=== PATIENT | female | born 1985 | race African-American/Black ===

== ENCOUNTER 2020-11-09 09:13 | Inpatient (IN) | payer OTHER, MEDICAID ==
[~2020-11-09] VITALS: Ht 172.7 cm; Wt 144.3 kg
[2020-11-09 10:37] LABS: BASOPHILS % 0.6 % (0.0-2.0); EOSINOPHILS % 1.1 % (0.0-5.0); HEMATOCRIT. 42.6 % (36.0-48.0); HEMOGLOBIN. 14.4 g/dL (12.0-16.0); LYMPHOCYTES % 44.5 % (20.0-50.0); MEAN CORPUSCULAR HEMOGLOBIN 28.4 pg (28.0-32.0); MEAN CORPUSCULAR VOLUME 83.8 fL (81.0-99.0); MEAN PLATELET VOLUME 8.6 fl (7.4-10.4); MONOCYTES % 7.2 % (2.0-8.0); NEUTROPHILS % 46.6 % (40.0-76.0); PLATELET 296 x1000/uL (130-400); RED BLOOD CELL COUNT 5.09 mill/uL (4.2-5.4)
[2020-11-09 10:40] LABS: CHLORIDE 102 mEq/L (98-107)
[2020-11-09 10:44] LABS: HCG SCREEN NEGATIVE
[2020-11-09] MEDS ORDERED: MAGNESIUM 2 G PREMIX 50 ML IV ONE (12:45)
[2020-11-09] MEDS ORDERED: LACTATED RINGERS 1,000 ML IV SCH (12:45)
[2020-11-09] MEDS ORDERED: DIGOXIN 500MCG/2ML AMP IV ONE (12:45)
[2020-11-09] MEDS ORDERED: DILTIAZEM HCL 5MG/ML 5ML VIAL IV ONE ×2 (12:45→14:30)
[2020-11-09 13:01] LABS: CHLORIDE 106 mEq/L (98-107)
[2020-11-09 13:05] LABS: HEMATOCRIT. 35.2 % (36.0-48.0); HEMOGLOBIN. 11.5 g/dL (12.0-16.0); MEAN CORPUSCULAR VOLUME 88.5 fL (81.0-99.0); MEAN PLATELET VOLUME 8.8 fl (7.4-10.4); PLATELET 223 x1000/uL (130-400); RED BLOOD CELL COUNT 3.97 mill/uL (4.2-5.4); RED CELL DISTRIBUTION WIDTH 12.8 % (11.6-14.6)
[2020-11-09 13:30] LABS: HCG SCREEN NEGATIVE
[2020-11-09] MEDS ORDERED: ACETAMINOPHEN 325MG TABLET PO ONE (13:30)
[2020-11-09 13:41] LABS: PLATELET ESTIMATE NORMAL
[2020-11-09] MEDS ORDERED: LORAZEPAM 0.5MG TABLET PO PRN (16:15)
[2020-11-09] MEDS ORDERED: NITROGLYCERIN 0.4MG TABLET SL SL PRN (16:15)
[2020-11-09] MEDS ORDERED: CLONIDINE 0.1MG TABLET PO PRN (16:15)
[2020-11-09] MEDS ORDERED: IPRATROPIUM/ALBUTEROL 0.5-3(2.5)MG/3ML NEB NEB PRN (16:15)
[2020-11-09] MEDS ORDERED: ONDANSETRON HCL 4MG/2ML INJ IV PRN (16:15)
[2020-11-09] MEDS ORDERED: ACETAMINOPHEN 325MG TABLET PO PRN (16:15)
[2020-11-09] MEDS ORDERED: DOCUSATE SODIUM 100MG CAPSULE PO PRN (16:15)
[2020-11-09] MEDS ORDERED: KETOROLAC 15MG/ML VIAL IV PRN (16:15)
[2020-11-09] MEDS ORDERED: MAGNESIUM/ALUMINUM HYDROXIDE/SIMETHICONE 30ML UDC PO PRN (16:15)
[2020-11-09] MEDS ORDERED: GUAIFENESIN 200MG/10ML SUGAR FREE UDC PO PRN (16:15)
[2020-11-09 16:51] LABS: *AMPHETAMINES SCREEN URINE NEGATIVE (NEGATIVE); *BARBITURATES SCREEN URINE NEGATIVE (NEGATIVE); *BENZODIAZEPINES SCREEN URINE NEGATIVE (NEGATIVE)
[2020-11-09 16:52] LABS: *COCAINE SCREEN URINE NEGATIVE (NEGATIVE); CANNABINOID URINE SCREEN NEGATIVE (NEGATIVE); METHADONE URINE SCREEN NEGATIVE (NEGATIVE); OPIATES URINE SCREEN NEGATIVE (NEGATIVE); PHENCYCLIDINE URINE SCREEN NEGATIVE (NEGATIVE)
[2020-11-09] MEDS: ENOXAPARIN 40MG/0.4ML SYR SUBCUT SCH (17:11)
[2020-11-09 17:35] LABS: FOLIC ACID (FOLATE) SERUM 11.5 ng/mL (>5.38)
[2020-11-09] MEDS ORDERED: DILTIAZEM HCL 60MG TABLET PO SCH (18:00)
[2020-11-09 18:28] LABS: T4 FREE 1.23 ng/dL (0.76-1.46)
[2020-11-09] MEDS ORDERED: FAMOTIDINE 20MG/2ML VIAL IV SCH (21:00)
[2020-11-09] MEDS ORDERED: ZOLPIDEM TARTRATE 5MG TABLET PO PRN (21:00)
[2020-11-09 21:26] VITALS: BP 126/72
[2020-11-09] MEDS: ASCORBIC ACID 500 MG TABLET PO SCH (21:55)
[2020-11-09] MEDS: FAMOTIDINE 20MG TABLET PO SCH (21:55)
[2020-11-09 22:30] VITALS: BP 126/72
[2020-11-09 23:50] LABS: CREATINE KINASE 34 IU/L (26-192)
[2020-11-09 23:51] LABS: CREATINE KINASE MB FRACTION < 1.0 ng/mL (0.5-3.6)
[2020-11-10] VITALS: BP 110/53
[2020-11-10] MEDS: DILTIAZEM HCL 30MG TABLET PO SCH ×3 (00:34→12:54)
[2020-11-10 04:00] VITALS: BP 131/59
[2020-11-10] MEDS: ENOXAPARIN 40MG/0.4ML SYR SUBCUT SCH (05:46)
[2020-11-10 07:12] LABS: BASOPHILS % 0.3 % (0.0-2.0); EOSINOPHILS % 1.4 % (0.0-5.0); HEMATOCRIT. 38.1 % (36.0-48.0); LYMPHOCYTES % 52.7 % (20.0-50.0); MEAN CORPUSCULAR HEMOGLOBIN 28.6 pg (28.0-32.0); MEAN CORPUSCULAR VOLUME 83.9 fL (81.0-99.0); MEAN PLATELET VOLUME 8.5 fl (7.4-10.4); MONOCYTES % 7.2 % (2.0-8.0); NEUTROPHILS % 38.4 % (40.0-76.0); PLATELET 269 x1000/uL (130-400); RED BLOOD CELL COUNT 4.53 mill/uL (4.2-5.4)
[2020-11-10 07:30] LABS: CHLORIDE 104 mEq/L (98-107)
[2020-11-10 07:53] LABS: CREATINE KINASE 29 IU/L (26-192)
[2020-11-10 07:56] LABS: PHOSPHORUS 4.7 mg/dL (2.5-4.9)
[2020-11-10 08:00] VITALS: BP 109/65
[2020-11-10 08:01] LABS: CREATINE KINASE MB FRACTION < 1.0 ng/mL (0.5-3.6)
[2020-11-10] MEDS: FAMOTIDINE 20MG TABLET PO SCH ×2 (08:43→20:59)
[2020-11-10] MEDS: ASCORBIC ACID 500 MG TABLET PO SCH ×2 (08:43→20:59)
[2020-11-10] MEDS: ZINC SULFATE 220 MG ( 50 ) CAPSULE PO SCH (08:43)
[2020-11-10] MEDS: ACETAMINOPHEN 325MG TABLET PO PRN (08:44)
[2020-11-10] MEDS: CHOLECALCIFEROL (D3) 1000 UNIT TABLET PO SCH (08:44)
[2020-11-10] MEDS ORDERED: ASPIRIN 325MG EC TABLET PO SCH (09:00)
[2020-11-10 12:00] VITALS: BP 139/76
[2020-11-10 16:00] VITALS: BP 117/77
[2020-11-10] MEDS: APIXABAN 5 MG TABLET PO SCH (17:28)
[2020-11-10] MEDS: DILTIAZEM HCL 120MG CAPSULE CD 24HR PO SCH (17:28)
[2020-11-10 20:00] VITALS: BP 102/77
[2020-11-11] VITALS: BP 123/56
[2020-11-11 04:00] VITALS: BP 116/59
[2020-11-11 08:00] VITALS: BP 109/58
[2020-11-11] MEDS: DILTIAZEM HCL 120MG CAPSULE CD 24HR PO SCH (09:00)
[2020-11-11] MEDS: CHOLECALCIFEROL (D3) 1000 UNIT TABLET PO SCH (09:27)
[2020-11-11] MEDS: ZINC SULFATE 220 MG ( 50 ) CAPSULE PO SCH (09:27)
[2020-11-11] MEDS: FAMOTIDINE 20MG TABLET PO SCH ×2 (09:28→20:51)
[2020-11-11] MEDS: APIXABAN 5 MG TABLET PO SCH ×2 (09:28→17:32)
[2020-11-11] MEDS: ASCORBIC ACID 500 MG TABLET PO SCH ×2 (09:28→20:51)
[2020-11-11 12:00] VITALS: BP 144/75
[2020-11-11 16:00] VITALS: BP 109/41
[2020-11-11] MEDS: ACETAMINOPHEN 325MG TABLET PO PRN (18:46)
[2020-11-11 20:00] VITALS: BP 107/68
[2020-11-11] MEDS ORDERED: KETOROLAC 15MG/ML VIAL IV PRN (20:00)
[2020-11-12] VITALS: BP 112/58
[2020-11-12 04:00] VITALS: BP 113/61
[2020-11-12 08:00] VITALS: BP 114/60
[2020-11-12] MEDS: APIXABAN 5 MG TABLET PO SCH (08:42)
[2020-11-12] MEDS: CHOLECALCIFEROL (D3) 1000 UNIT TABLET PO SCH (08:42)
[2020-11-12] MEDS: ASCORBIC ACID 500 MG TABLET PO SCH (08:42)
[2020-11-12] MEDS: FAMOTIDINE 20MG TABLET PO SCH (08:42)
[2020-11-12] MEDS: ZINC SULFATE 220 MG ( 50 ) CAPSULE PO SCH (08:43)
[2020-11-12] MEDS: DILTIAZEM HCL 120MG CAPSULE CD 24HR PO SCH (08:44)
[2020-11-12] MEDS ORDERED: FLECAINIDE 50MG TABLET PO SCH (09:00)
[2020-11-12 11:13] VITALS: BP 125/83
[2020-11-12 12:00] VITALS: BP 125/83
== END 2020-11-12 14:45 | disposition home or self-care (01) | DRG 309 ==
LOC: ER 09:38 → EDBEDREQ 15:43 → 5WST 15:43 → ENRESERV 20:59
PROVIDERS: ADMIT Internal Medicine; ATTEND Internal Medicine
DX: I48.0 Paroxysmal atrial fibrillation (principal); E87.1 Hypo-osmolality and hyponatremia; Z68.42 Body mass index [BMI] 45.0-49.9, adult; R55 Syncope and collapse; E66.01 Morbid (severe) obesity due to excess calories; J45.909 Unspecified asthma, uncomplicated; M54.2 Cervicalgia; K21.9 Gastro-esophageal reflux disease without esophagitis; W18.39XA Other fall on same level, initial encounter; M54.12 Radiculopathy, cervical region; Z79.82 Long term (current) use of aspirin; Z87.09 Personal history of other diseases of the respiratory system; Z79.01 Long term (current) use of anticoagulants; Z71.3 Dietary counseling and surveillance; Y93.89 Activity, other specified; Y92.89 Other specified places as the place of occurrence of the external cause; Y99.8 Other external cause status; R73.03 Prediabetes
CPT/HCPCS: 36415; 71045; 80048; 80053; 80061; 80305; 82550; 82553; 82607; 82746; 83036; 83540; 83550; 83735; 84100; 84439; 84443; 84484; 84703; 85025; 85379; 93005; 93306; 93970; 99285; J1160; J1650; J1885; J3475; J3490

== ENCOUNTER 2021-03-18 11:39 | Inpatient (IN) | payer OTHER, MEDICAID ==
[~2021-03-18] VITALS: Ht 175.3 cm; Wt 147.4 kg
[2021-03-18 17:38] LABS: BASOPHILS % 1.2 % (0.0-2.0); EOSINOPHILS % 0.9 % (0.0-5.0); HEMATOCRIT. 37.7 % (36.0-48.0); HEMOGLOBIN. 12.7 g/dL (12.0-16.0); LYMPHOCYTES % 43.6 % (20.0-50.0); MEAN CORPUSCULAR HEMOGLOBIN 28.1 pg (28.0-32.0); MEAN CORPUSCULAR VOLUME 83.5 fL (81.0-99.0); MEAN PLATELET VOLUME 9.1 fl (7.4-10.4); MONOCYTES % 5.7 % (2.0-8.0); NEUTROPHILS % 48.6 % (40.0-76.0); PLATELET 301 x1000/uL (130-400); RED BLOOD CELL COUNT 4.52 mill/uL (4.2-5.4); RED CELL DISTRIBUTION WIDTH 12.6 % (11.6-14.6)
[2021-03-18 17:42] LABS: CHLORIDE 104 mEq/L (98-107)
[2021-03-19 03:04] LABS: CLARITY URINE CLEAR (CLEAR); COLOR URINE YELLOW (YELLOW); KETONES URINE TRACE (NEGATIVE); LEUKOCYTE ESTERASE URINE NEGATIVE (NEGATIVE); NITRITE URINE NEGATIVE (NEGATIVE); OCCULT BLOOD URINE 1+ (NEGATIVE); PH URINE 5.5 (4.5-8.0); PROTEIN URINE NEGATIVE (NEGATIVE); SPECIFIC GRAVITY URINE 1.043 (1.005-1.030)
[2021-03-19 03:14] LABS: *AMPHETAMINES SCREEN URINE NEGATIVE (NEGATIVE); *BARBITURATES SCREEN URINE NEGATIVE (NEGATIVE); *BENZODIAZEPINES SCREEN URINE NEGATIVE (NEGATIVE); *COCAINE SCREEN URINE NEGATIVE (NEGATIVE); CANNABINOID URINE SCREEN NEGATIVE (NEGATIVE); METHADONE URINE SCREEN NEGATIVE (NEGATIVE); OPIATES URINE SCREEN NEGATIVE (NEGATIVE); PHENCYCLIDINE URINE SCREEN NEGATIVE (NEGATIVE)
[2021-03-19 05:00] VITALS: BP 125/70
[2021-03-19] MEDS ORDERED: CARD12 PO (06:34)
[2021-03-19] MEDS ORDERED: FAMO20TA8 PO (06:34)
[2021-03-19] MEDS ORDERED: FLEC50TA2 PO (06:34)
[2021-03-19 07:01] LABS: CHLORIDE 107 mEq/L (98-107)
[2021-03-19 07:03] LABS: BASOPHILS % 0.2 % (0.0-2.0); EOSINOPHILS % 1.6 % (0.0-5.0); HEMATOCRIT. 35.3 % (36.0-48.0); HEMOGLOBIN. 11.9 g/dL (12.0-16.0); LYMPHOCYTES % 50.6 % (20.0-50.0); MEAN CORPUSCULAR HEMOGLOBIN 28.1 pg (28.0-32.0); MEAN CORPUSCULAR VOLUME 83.2 fL (81.0-99.0); MEAN PLATELET VOLUME 8.2 fl (7.4-10.4); MONOCYTES % 7.2 % (2.0-8.0); NEUTROPHILS % 40.4 % (40.0-76.0); PLATELET 264 x1000/uL (130-400); RED BLOOD CELL COUNT 4.25 mill/uL (4.2-5.4); RED CELL DISTRIBUTION WIDTH 12.7 % (11.6-14.6)
[2021-03-19 07:10] LABS: CREATINE KINASE 42 IU/L (26-192)
[2021-03-19 07:12] LABS: CREATINE KINASE MB FRACTION < 1.0 ng/mL (0.5-3.6)
[2021-03-19 07:13] LABS: LDL CHOLESTEROL 93 mg/dL (5-100)
[2021-03-19 07:16] LABS: HDL CHOLESTEROL 50 mg/dL (40-59)
[2021-03-19 08:00] VITALS: BP 118/82
[2021-03-19] MEDS: ACETAMINOPHEN 500MG TABLET PO PRN ×2 (08:55→14:09)
[2021-03-19] MEDS ORDERED: FAMOTIDINE(NEO) 1MG/ML SUSP PO SCH (09:00)
[2021-03-19] MEDS: FAMOTIDINE 20MG TABLET PO SCH ×2 (09:14→21:05)
[2021-03-19] MEDS: DILTIAZEM HCL 120MG CAPSULE CD 24HR PO SCH (09:14)
[2021-03-19] MEDS: FLECAINIDE 50MG TABLET PO SCH ×2 (09:20→21:05)
[2021-03-19 12:00] VITALS: BP 107/73
[2021-03-19] MEDS: ASPIRIN 325MG EC TABLET PO SCH (14:09)
[2021-03-19] MEDS: ENOXAPARIN 40MG/0.4ML SYR SUBCUT SCH ×2 (14:11→21:07)
[2021-03-19 16:00] VITALS: BP 136/79
[2021-03-19 16:02] LABS: CREATINE KINASE 52 IU/L (26-192)
[2021-03-19 16:04] LABS: CREATINE KINASE MB FRACTION < 1.0 ng/mL (0.5-3.6)
[2021-03-19 20:00] VITALS: BP 131/77
[2021-03-19 23:14] LABS: CREATINE KINASE 37 IU/L (26-192)
[2021-03-19 23:16] LABS: CREATINE KINASE MB FRACTION < 1.0 ng/mL (0.5-3.6)
[2021-03-20] VITALS (7 sets, daily range): BP systolic 119–136; BP diastolic 63–86
[2021-03-20] MEDS: FAMOTIDINE 20MG TABLET PO SCH ×2 (08:39→20:52)
[2021-03-20] MEDS: ASPIRIN 325MG EC TABLET PO SCH (08:39)
[2021-03-20] MEDS: DILTIAZEM HCL 120MG CAPSULE CD 24HR PO SCH (08:39)
[2021-03-20] MEDS: ENOXAPARIN 40MG/0.4ML SYR SUBCUT SCH ×2 (08:40→20:52)
[2021-03-20] MEDS: FLECAINIDE 50MG TABLET PO SCH ×2 (08:40→20:52)
[2021-03-21] VITALS: BP 127/70
[2021-03-21 04:00] VITALS: BP 108/58
[2021-03-21 08:00] VITALS: BP 134/61
[2021-03-21] MEDS: FAMOTIDINE 20MG TABLET PO SCH ×2 (10:52→20:37)
[2021-03-21] MEDS: ENOXAPARIN 40MG/0.4ML SYR SUBCUT SCH ×2 (10:52→20:37)
[2021-03-21] MEDS: FLECAINIDE 50MG TABLET PO SCH ×2 (10:53→20:37)
[2021-03-21] MEDS: DILTIAZEM HCL 120MG CAPSULE CD 24HR PO SCH (10:53)
[2021-03-21] MEDS: ASPIRIN 325MG EC TABLET PO SCH (10:53)
[2021-03-21 12:00] VITALS: BP 127/57
[2021-03-21 16:00] VITALS: BP 119/59
[2021-03-21 20:00] VITALS: BP 145/77
[2021-03-22] VITALS: BP 113/68
[2021-03-22 04:00] VITALS: BP 103/51
[2021-03-22 08:00] VITALS: BP 121/70
[2021-03-22] MEDS: ENOXAPARIN 40MG/0.4ML SYR SUBCUT SCH ×2 (09:00→20:49)
[2021-03-22 12:00] VITALS: BP 119/88
[2021-03-22] MEDS: FAMOTIDINE 20MG TABLET PO SCH ×2 (12:41→20:48)
[2021-03-22] MEDS: FLECAINIDE 50MG TABLET PO SCH ×2 (12:41→20:48)
[2021-03-22] MEDS: ASPIRIN 325MG EC TABLET PO SCH (12:42)
[2021-03-22] MEDS: DILTIAZEM HCL 120MG CAPSULE CD 24HR PO SCH (12:42)
[2021-03-22] MEDS ORDERED: DEXTROSE 50% WATER 50ML SYRINGE IV PRN (14:30)
[2021-03-22] MEDS: BLOOD SUGAR DIAGNOSTIC STRIP TEST SCH ×2 (17:10→20:47)
[2021-03-22] MEDS: INSULIN LISPRO 100 UNITS/ML SUBCUT SCH ×2 (17:40→20:49)
[2021-03-22 19:37] VITALS: BP 136/76
[2021-03-23] VITALS: BP 137/85
[2021-03-23 04:00] VITALS: BP 113/67
[2021-03-23] MEDS: BLOOD SUGAR DIAGNOSTIC STRIP TEST SCH ×3 (06:35→17:10)
[2021-03-23] MEDS: INSULIN LISPRO 100 UNITS/ML SUBCUT SCH ×3 (06:49→17:12)
[2021-03-23 08:00] VITALS: BP 120/81
[2021-03-23 08:00] LABS: BASOPHILS % 0.4 % (0.0-2.0); EOSINOPHILS % 1.6 % (0.0-5.0); HEMATOCRIT. 37.3 % (36.0-48.0); HEMOGLOBIN. 12.4 g/dL (12.0-16.0); LYMPHOCYTES % 52.8 % (20.0-50.0); MEAN CORPUSCULAR HEMOGLOBIN 27.8 pg (28.0-32.0); MEAN CORPUSCULAR VOLUME 83.5 fL (81.0-99.0); MEAN PLATELET VOLUME 8.5 fl (7.4-10.4); MONOCYTES % 7.9 % (2.0-8.0); NEUTROPHILS % 37.3 % (40.0-76.0); PLATELET 239 x1000/uL (130-400); RED BLOOD CELL COUNT 4.47 mill/uL (4.2-5.4); RED CELL DISTRIBUTION WIDTH 12.3 % (11.6-14.6)
[2021-03-23 08:40] LABS: CHLORIDE 107 mEq/L (98-107)
[2021-03-23] MEDS: FLECAINIDE 50MG TABLET PO SCH (10:17)
[2021-03-23] MEDS: FAMOTIDINE 20MG TABLET PO SCH (10:17)
[2021-03-23] MEDS: ASPIRIN 325MG EC TABLET PO SCH (10:17)
[2021-03-23] MEDS: DILTIAZEM HCL 120MG CAPSULE CD 24HR PO SCH (10:17)
[2021-03-23] MEDS: ENOXAPARIN 40MG/0.4ML SYR SUBCUT SCH (10:18)
[2021-03-23 12:00] VITALS: BP 126/72
[2021-03-23] MEDS: ACETAMINOPHEN 500MG TABLET PO PRN (15:57)
[2021-03-23 17:47] VITALS: BP 126/72
[2021-03-24] MEDS ORDERED: GLIPIZIDE 5MG TABLET PO SCH (07:10)
== END 2021-03-23 18:35 | disposition home or self-care (01) | DRG 309 ==
LOC: ER 11:39 → 8WST 19:14 → ENRESERV 03-19 04:04
PROVIDERS: ADMIT Internal Medicine; ATTEND Internal Medicine
DX: I48.0 Paroxysmal atrial fibrillation (principal); Z68.42 Body mass index [BMI] 45.0-49.9, adult; E87.1 Hypo-osmolality and hyponatremia; E66.01 Morbid (severe) obesity due to excess calories; E11.9 Type 2 diabetes mellitus without complications; G47.33 Obstructive sleep apnea (adult) (pediatric); I10 Essential (primary) hypertension; K21.9 Gastro-esophageal reflux disease without esophagitis; Z91.11 Patient's noncompliance with dietary regimen; Z90.3 Acquired absence of stomach [part of]
CPT/HCPCS: 36415; 71045; 80048; 80053; 80061; 80305; 81003; 82550; 82553; 82962; 83036; 83605; 83735; 83880; 84484; 85025; 93005; 93017; 99285; C1893; J1650

== ENCOUNTER 2021-11-10 09:16 | Emergency (ER) | payer OTHER, MEDICAID ==
[~2021-11-10] VITALS: Ht 177.8 cm; Wt 118.0 kg
[~2021-11-10 09:16] MED LIST: CARD12 PO; FAMO20TA8 PO; FLEC50TA2 PO
[2021-11-10] MEDS ORDERED: METOCLOPRAMIDE HCL 10MG/2ML VIAL IV ONE (10:30)
[2021-11-10] MEDS ORDERED: SODIUM CHLORIDE 0.9% 1,000 ML IV ONE (10:30)
[2021-11-10 10:36] LABS: BASOPHILS % 0.4 % (0.0-2.0); EOSINOPHILS % 0.8 % (0.0-5.0); HEMATOCRIT. 39.8 % (36.0-48.0); HEMOGLOBIN. 13.4 g/dL (12.0-16.0); LYMPHOCYTES % 41.6 % (20.0-50.0); MEAN CORPUSCULAR HEMOGLOBIN 28.1 pg (28.0-32.0); MEAN CORPUSCULAR VOLUME 83.7 fL (81.0-99.0); MEAN PLATELET VOLUME 8.3 fl (7.4-10.4); MONOCYTES % 6.6 % (2.0-8.0); NEUTROPHILS % 50.6 % (40.0-76.0); PLATELET 271 x1000/uL (130-400); RED BLOOD CELL COUNT 4.76 mill/uL (4.2-5.4); RED CELL DISTRIBUTION WIDTH 12.9 % (11.6-14.6)
[2021-11-10 10:47] LABS: CHLORIDE 105 mEq/L (98-107)
[2021-11-10 10:55] LABS: HCG SCREEN NEGATIVE
[2021-11-10 13:11] VITALS: BP 132/82
== END 2021-11-10 13:24 | disposition home or self-care (01) ==
LOC: ER 09:27
DX: R55 Syncope and collapse (principal); G44.209 Tension-type headache, unspecified, not intractable; I48.91 Unspecified atrial fibrillation; E11.9 Type 2 diabetes mellitus without complications; K21.9 Gastro-esophageal reflux disease without esophagitis
CPT/HCPCS: 36415; 70450; 80053; 84703; 85025; 93005; 96361; 96374; 99285; J2765; J7030

== ENCOUNTER 2022-02-14 01:49 | Emergency (ER) | payer OTHER, MEDICAID ==
[~2022-02-14] VITALS: Ht 175.3 cm; Wt 136.0 kg
[2022-02-14] MEDS ORDERED: SODIUM CHLORIDE 0.9% 1,000 ML IV ONE (09:00)
[2022-02-14 09:03] LABS: BASOPHILS % 0.4 % (0.0-2.0); EOSINOPHILS % 1.2 % (0.0-5.0); HEMATOCRIT. 43.7 % (36.0-48.0); HEMOGLOBIN. 14.7 g/dL (12.0-16.0); LYMPHOCYTES % 54.2 % (20.0-50.0); MEAN CORPUSCULAR HEMOGLOBIN 27.7 pg (28.0-32.0); MEAN CORPUSCULAR VOLUME 82.5 fL (81.0-99.0); MEAN PLATELET VOLUME 8.1 fl (7.4-10.4); MONOCYTES % 8.6 % (2.0-8.0); NEUTROPHILS % 35.6 % (40.0-76.0); PLATELET 326 x1000/uL (130-400); RED CELL DISTRIBUTION WIDTH 12.9 % (11.6-14.6)
[2022-02-14 09:12] LABS: CLARITY URINE CLEAR (CLEAR); COLOR URINE YELLOW (YELLOW); KETONES URINE 1+ (NEGATIVE); LEUKOCYTE ESTERASE URINE NEGATIVE (NEGATIVE); NITRITE URINE NEGATIVE (NEGATIVE); OCCULT BLOOD URINE NEGATIVE (NEGATIVE); PROTEIN URINE NEGATIVE (NEGATIVE); UROBILINOGEN URINE 0.2 E.U./dL (0.2-1.0)
[2022-02-14 09:12] LABS: CHLORIDE 101 mEq/L (98-107)
[2022-02-14 09:14] LABS: HCG SCREEN NEGATIVE
[2022-02-14 11:05] VITALS: BP 122/86
[2022-02-14] MEDS ORDERED: METF-414 MT (11:21)
== END 2022-02-14 11:34 | disposition home or self-care (01) ==
LOC: ER 01:49
DX: R55 Syncope and collapse (principal); I48.91 Unspecified atrial fibrillation; K21.9 Gastro-esophageal reflux disease without esophagitis; E11.9 Type 2 diabetes mellitus without complications; Z87.19 Personal history of other diseases of the digestive system; Z98.890 Other specified postprocedural states; Z79.01 Long term (current) use of anticoagulants; Z79.84 Long term (current) use of oral hypoglycemic drugs
CPT/HCPCS: 36415; 70450; 80053; 81003; 84703; 85025; 93005; 96360; 96361; 99285; J7030

== ENCOUNTER 2025-05-14 08:58 | Emergency (ER) | payer MEDICAID, OTHER ==
[~2025-05-14] VITALS: Ht 165.1 cm; Wt 123.0 kg
[~2025-05-14 08:58] MED LIST changes: +METF-414 MT
[2025-05-14 08:59] VITALS: O2SAT 99
[2025-05-14 09:32] LABS: BASOPHILS % 1.2 % (0.0-2.0); EOSINOPHILS % 0.9 % (0.0-5.0); HEMATOCRIT. 39.6 % (36.0-48.0); HEMOGLOBIN. 13.4 g/dL (12.0-16.0); LYMPHOCYTES % 48.7 % (20.0-50.0); MEAN PLATELET VOLUME 8.3 fl (7.4-10.4); MONOCYTES % 5.9 % (2.0-8.0); NEUTROPHILS % 43.3 % (40.0-76.0); PLATELET 254 x1000/uL (130-400); RED BLOOD CELL COUNT 4.58 mill/uL (4.2-5.4); RED CELL DISTRIBUTION WIDTH 12.6 % (11.6-14.6)
[2025-05-14 09:47] LABS: CREATININE 0.7 mg/dL (0.6-1.0); UREA NITROGEN BLOOD 8 mg/dL (9-23)
[2025-05-14 09:48] LABS: TROPONIN I HIGH SENSITIVITY < 4 ng/L (3.0-34)
[2025-05-14 10:05] LABS: CLARITY URINE CLEAR (CLEAR); COLOR URINE YELLOW (YELLOW); GLUCOSE URINE 3+ (NEGATIVE); KETONES URINE 1+ (NEGATIVE); LEUKOCYTE ESTERASE URINE NEGATIVE (NEGATIVE); NITRITE URINE NEGATIVE (NEGATIVE); OCCULT BLOOD URINE NEGATIVE (NEGATIVE); PH URINE 8.0 (4.5-8.0); PROTEIN URINE NEGATIVE (NEGATIVE); SPECIFIC GRAVITY URINE 1.033 (1.005-1.030); UROBILINOGEN URINE 1.0 E.U./dL (0.2-1.0)
[2025-05-14] MEDS: LACTATED RINGERS 1,000 ML IV SCH ×2 (10:16)
[2025-05-14 10:18] LABS: BACTERIA URINE TRACE; SQUAMOUS EPITHELIAL CELL URINE RARE /lpf (RARE/1+)
[2025-05-14 10:19] LABS: RBC URINE NONE SEEN /hpf (0-2); WBC URINE NONE SEEN /hpf (0-2)
[2025-05-14 12:38] VITALS: BP 138/93; PULSE 82; RESP 12; TEMP 37; O2SAT 95
== END 2025-05-14 12:56 | disposition home or self-care (01) ==
LOC: ER 08:58
DX: R51.9 Headache, unspecified (principal); R73.9 Hyperglycemia, unspecified; Z79.899 Other long term (current) drug therapy; Z90.89 Acquired absence of other organs
CPT/HCPCS: 36415; 80048; 81003; 84484; 85025; 93005; 96360; 99284